=== PATIENT | female | born 1965 | race Caucasian/White ===

== ENCOUNTER 2024-05-29 07:50 | Emergency (ER) | payer OTHER, SELFPAY ==
--- NOTE | ~2024-05-29 | XR_ITS ---
EXAMINATION: XR chest 2V 05/29/2024 08:51 INDICATION: Left-sided chest pain with cough PROCEDURE: 2 view chest COMPARISON: 07/27/2021 FINDINGS: The lungs are clear. The lungs are hyperinflated which is consistent with, but not diagnost ic of chronic obstructive pulmonary disease. The cardiomediastinal silhouette is within normal limits . There are no pleural effusions. There is no pneumothorax suspected. IMPRESSION: 1: NO ACUTE CARDIOPULMONARY DISEASE. Reviewed, dictated and finalized at location B.
--- NOTE | 2024-05-29 07:51 | ECG_ITS ---
Test Date: 2024-05-29 07:55:00 Measurements Intervals [place] Rate: 71 P: 74 NC: 129 QRS: 88 QRSD: 84 T: 81 QT: 389 QTc: 424 Interpretive Statements SINUS RHYTHM No previous ECG available for comparison Electronically Signed On 05-29-2024 16:54:45 CDT by Agustina Crespo M.D.
--- OUTSIDE RECORDS SUMMARY | 2024-05-29 07:56 | XMS_ITS | Encounter Summary ---
Author Organization [facility] Address [address] [place] [address] Phone Care Team Providers Care Behavioral Health Care Coordinator Name Role Phone Curtis Dukes MD Unavailable Shirin Magallon MD Primary Care Provider Reason for Visit * Reason Comments Medication Refill Encounter Details Date Type Department Care Team (Late st Contact Info) Description 03/15/2020 Refill [facility] PULMONOLOGY #1 [place] [phone] Curtis Dukes MD #2 [place] [address] Medication Refill Social History Tobacco Use Types Packs/Day Years Used Date Smoking Tobacco: Former Cigarettes Smokeless Tobacco: Never Comments:patient quit June 2018 Alcohol Use Standard Drinks/Week Comments No 0 (1 standard drink = 0.6 oz pur e alcohol) Sexually Active Control Partners Comments Yes Male Comments No Sex and Gender Information Value Date Recorded Sex Assigned at Not on file Legal Sex Female 7:22 PM CDT Gender Identity Not on file Sexual Orientation Not on file documented as of this encounter Miscellaneous Notes * Telephone Encounter - Anabella Mercedes APN, CNP - 03/17/2020 7:45 AM CO FOUNDER AND CHAIRMAN Patient is no longer seen in this clinic. FOUNDER AND CHAIRMAN documented in this encounter Plan of Treatment Not on file documented as of this encounter Visit Diagnoses Not on filedocumented in this encounter Care Teams Behavioral Health Care Coordinator Relationship Specialty Start Date End Date Shirin Magallon MD [address] [address] PCP - General Obstetrics & Gynecology 07/28/17 Curtis Dukes MD Consulting Physician Pulmonary Disease 10/31/15 2 documented as of this encounter
--- OUTSIDE RECORDS SUMMARY | 2024-05-29 07:56 | XMS_ITS | CONTINUITY OF CARE DOCUMENT ---
Author Name kaila bright Address Unknown Organization [facility] Address [address] [place] [address] Phone [phone] Care Team Providers Care Health Navigator Name Role Phone Kye Pedraza MD Unavailable [phone] Kye Pedraza MD Unavailable [phone] INSURANCE PROVIDERS Payer name Policy type / Coverage type Jasmeet red republican [id number] MEDICAID (2) Medicaid [id number]
--- OUTSIDE RECORDS SUMMARY | 2024-05-29 07:56 | XMS_ITS | Encounter Summary ---
Author Organization [facility] Address [address] [place] [address] Phone Care Team Providers Care Survey Statistician Name Role Phone Curtis Dukes MD Unavailable Shirin Magallon MD Primary Care Provider Reason for Visit * Reason Comments Medication Refill Encounter Details Date Type Department Care Team (Late st Contact Info) Description 02/29/[address] [facility] PULMONOLOGY #1 [facility] [place] [phone] Curtis Dukes MD #2 [place] [phone] Medication Refill Social History Tobacco Use Types [...] on file documented as of this encounter Plan of Treatment Not on file documented as of this encounter Visit Diagnoses Not on filedocumented in this encounter Care Teams Survey Statistician Relationship Specialty Start Date End Date Shirin Magallon MD [address] [address] PCP - General Obstetrics & Gynecology 07/28/17 Curtis Dukes MD Consulting Physician Pulmonary Disease 10/31/15 2 documented as of this encounter
--- OUTSIDE RECORDS SUMMARY | 2024-05-29 07:56 | XMS_ITS | Encounter Summary ---
Author Organization [facility] Address [address] [facility] [place] [address] Phone Care Team Providers Care Residential Aide Name Role Phone Curtis Dukes MD Unavailable Shirin Magallon MD Primary Care Provider Reason for Visit * Reason Comments Medication Refill Encounter Details Date Type Department Care Team (Late st Contact Info) Description 07/09/2019 Refill [facility] PULMONOLOGY #1 [facility] [address] Curtis Dukes MD #2 [place] [phone] Medication Refill Social History Tobacco Use Types [...] on filedocumented in this encounter Care Teams Residential Aide Relationship Specialty Start Date End Date Shirin Magallon MD [address] [address] PCP - General Obstetrics & Gynecology 07/28/17 Curtis Dukes MD Consulting Physician Pulmonary Disease 10/31/15 2 documented as of this encounter
--- OUTSIDE RECORDS SUMMARY | 2024-05-29 07:56 | XMS_ITS | Clinical Summary ---
Author Organization [facility] Address [address] [facility] [place] [address] Phone Care Team Providers Care Butt Sawyer Name Role Phone Shirin Magallon MD Primary Care Provider Allergies Active Allergy Reactions Criticality Noted Date Comments Fentanyl Hives 11/03/2015 Cyclobenzaprine Hcl Other (see Comments) 2015 Leg spams Metronidazole Nausea 11/03/2015 Ropinirole Hcl Other (see Comments) 11/03/2015 Leg spams Quetiapine Other (see Comments) 11/03/2015 LEG SPAMS Trazodone Other (see Comments) 11/03/2015 LEG SPASM Medications Probiotic Product (SOLUBLE FIBER/PROBIOTIC S PO) Take by mouth. Activ e Cholecalciferol (VITAMIN D3) 2000 UNIT Capsule Take by mouth. Activ e IRON PO Take 130 mg by mouth Every other day. Active umeclidinium (INCRUSE ELLIPTA) 62.5 MCG/INH AEROSOL POWDER, BREATH ACTIVATED take 1 Puff by inhalation daily. 1 Each 3 9 Active temazepam (RESTORIL) 15 MG Capsule TAKE 1 CAPSULE BY MOUTH EVERY DAY AT BEDTIME NEEDED FOR SLEEP 8 Cap 9 Active albuterol (VENTOLIN HFA) 108 (90 Base) MCG/ACT Aerosol Solution take 2 Puffs by inhalation every 4 hours as needed for Wheezing. 1 Inhaler 5 9 Active clonazePAM (KLONOPIN) 0.5 MG Tablet TAKE 1 TABLET BY MOUTH THREE TIMES DAILY 270 Tab 2 0 Active clonazePAM (KLONOPIN) 1 MG Tablet TAKE 1 TABLET BY MOUTH THREE TIMES DAILY 270 Tab 5 0 Active ALBUTEROL 108 (90 Base) MCG/ACT Aerosol Solution INHALE 2 PUFFS BY MOUTH EVERY 4 HOURS NEEDED FOR SHORTNESS OF BREATH 8.5 g 0 Active temazepam (RESTORIL) 15 MG Capsule TAKE 1 CAPSULE BY MOUTH EVERY NIGHT AT BEDTIME NEEDED FOR SLEEP 8 Cap 4 0 Active Active Problems Problem Noted Date Diagnosed Date Restless legs 11/04/2015 Tobacco use disorder 11/04/2015 Centrilobular emphysema 11/04/2015 Cough 11/04/2015 SOB (shortness of breath) 11/04/2015 Family History Medical History Relation Name Comments Cancer Father No Known Problems Maternal Grandfather No Known Problems Maternal Grandmother Cancer Mother No Known Problems Paternal Grandfather No Known Problems Paternal Grandmother No Known Problems Sister Relation Name Status Comments Father Maternal Grandfather Maternal Grandmother Mother Alive Paternal Grandfather Paternal Grandmother Sister Alive Social History Tobacco Use Types Packs/Day Years Used Date Smoking Tobacco: Former Cigarettes Smokeless Tobacco: Never Tobacco Cessation:Ready to Q uit: Yes; Counseling Given: No Comments:patient quit June 2018 Alcohol Use Standard Drinks/Week Comments No 0 (1 standard drink = 0.6 oz pur e alcohol) Sexually Active Control Partners Comments Yes Male Comments No Sex and Gender Information Value Date Recorded Sex Assigned at Not on file Legal Sex Female 7:22 PM CDT Gender Identity Not on file Sexual Orientation Not on file Last Filed Vital Signs Vital Sign Reading Time Taken Comments Blood Pressure 128/62 12/21/2018 2:04 PM CDT Pulse 68 12/21/2018 2:04 PM CDT Temperature 36.1 C (96.9 F) 12/21/2018 2:04 PM CDT Respiratory Rate 18 12/21/2018 2:04 PM CDT Oxygen Saturation 96% 12/21/2018 2:04 PM CDT Inhaled Oxygen Concentration - - Weight 68.5 kg (151 lb) 12/21/2018 2:04 PM CDT Height 160 cm (5' 3 ) 12/21/2018 2:04 PM CDT Body Mass Index 26.75 12/21/2018 2:04 PM CDT Plan of Treatment Health Maintenance Due Date Last Done Comments Hepatitis C Virus (HCV) Screening 1965 TdaP Immunization 1965 Pneumococcal Immunization Co mbined (1 of 2 - PCV) 01/24/1970 Pneumococcal Immunization (5 0+ years) (1 of 2 - PCV) 01/24/1983 Pap Smear 01/24/1985 Cervical Cancer Screening (CCS) 01/24/1994 HPV/Cotest 01/24/1994 Cologuard 01/24/2014 Immunochemical Fecal Occult Blood 01/24/2014 Mammogram 01/24/2014 Zoster Immunization (1 of 2) 01/24/2014 Influenza Immunization (#1) 2023 SARS-COV-2 Immunization ( season) 2023 Colonoscopy 01/02/2024 01/01/2014 Colorectal Cancer Screening 01/02/2024 Respiratory Syncytial Virus (RSV) Immunization (Adult) (1 - Risk 60-74 years 1-dose series) 2024 01/01/2014 Hepatitis B Immunization Aged Out No longer eligible based on patient's age to complete this topic Meningococcal Immunization (ACWY) Aged Out No longer eligible based on patient's age to complete this topic Rotavirus Immunization Aged Out No lo nger eligible based on patient's age to complete this topic Procedures Procedure Name Priority Date/Time Associated Diagnosis Comments COLONOSCOPY Routine 01/01/2014 from Last 3 Months or Most Recently Relevant to Health Maintenance Results * COLONOSCOPY (01/01/2014) Shirin Magallon MD PROCEDURE/MINOR SURGIC AL ORDERABLES Final Result from Last 3 Months or Most Recently Relevant to Health Maintenance Insurance MEDICAID [employer] Care Teams Butt Sawyer Relationship Specialty Start Date End Date Shirin Magallon MD [address] [address] PCP - General Obstetrics & Gynecology 07/28/17
--- OUTSIDE RECORDS SUMMARY | 2024-05-29 07:56 | XMS_ITS | Encounter Summary ---
Author Organization [facility] Address [address] [facility] [place] [address] Phone Care Team Providers Care User Support Specialist Name Role Phone Curtis Dukes MD Unavailable Shirin Magallon MD Primary Care Provider Reason for Visit * Reason Comments Medication Refill Encounter Details Date Type Department Care Team (Late st Contact Info) Description 08/07/2019 Refill [facility] #1 [facility] [place] [phone] Curtis Dukes MD #2 [place] [phone] Medication Refill Social History Tobacco Use Types [...] on filedocumented in this encounter Care Teams User Support Specialist Relationship Specialty Start Date End Date Shirin Magallon MD [address] [address] PCP - General Obstetrics & Gynecology 07/28/17 Curtis Dukes MD Consulting Physician Pulmonary Disease 10/31/15 2 documented as of this encounter
--- OUTSIDE RECORDS SUMMARY | 2024-05-29 07:56 | XMS_ITS | Encounter Summary ---
Author Organization [facility] Address [address] [place] [address] Phone Care Team Providers Care Investigative Assistant Name Role Phone Curtis Dukes MD Unavailable Shirin Magallon MD Primary Care Provider Reason for Visit * Reason Comments Medication Refill Encounter Details Date Type Department Care Team (Late st Contact Info) Description 01/31/2020 Refill [facility]ULMONOLOGY #1 [facility] [place] [phone] Curtis Dukes MD #2 [place] [phone] Medication Refill Social History Tobacco Use Types [...] on filedocumented in this encounter Care Teams Investigative Assistant Relationship Specialty Start Date End Date Shirin Magallon MD [address] [address] PCP - General Obstetrics & Gynecology 07/28/17 Curtis Dukes MD Consulting Physician Pulmonary Disease 10/31/15 2 documented as of this encounter
--- OUTSIDE RECORDS SUMMARY | 2024-05-29 07:56 | XMS_ITS | Encounter Summary ---
Author Organization [facility] Address [address] [facility] [place] [address] Phone Care Team Providers Care Nursery Nurse Name Role Phone Curtis Dukes MD Unavailable Shirin Magallon MD Primary Care Provider Reason for Visit * Reason Comments Medication Refill Encounter Details Date Type Department Care Team (Late st Contact Info) Description 07/08/2019 Refill [facility] PULMONOLOGY #1 [place] [address] Curtis Dukes MD #2 [place] [phone] Medication Refill Social History Tobacco Use Types [...] on filedocumented in this encounter Care Teams Nursery Nurse Relationship Specialty Start Date End Date Shirin Magallon MD [address] [address] PCP - General Obstetrics & Gynecology 07/28/17 Curtis Dukes MD Consulting Physician Pulmonary Disease 10/31/15 2 documented as of this encounter
[2024-05-29 08:01] VITALS: BP 112/62; PULSE 69; RESP 20; TEMP 36.6; O2SAT 99
[2024-05-29 08:27] LABS: Basophils Absolute Auto 0.1 K/mm3 (0.0-0.1); Basophils Percent Auto 0.7 % (0.2-1.2); Eosinophils Absolute Auto 0.2 K/mm3 (0-0.3); Eosinophils Percent Auto 2.1 % (0-4.4); Hematocrit 43.8 % (37.0-47.0); Hemoglobin 14.3 g/dL (12.0-15.0); Immature Granulocyte Absolute 0.04 K/mm3 (0.00-0.031); Immature Granulocyte Percent A 0.5 % (0-0.5); Lymphocytes Absolute Auto 2.41 K/mm3 (0.9-3.2); Lymphocytes Percent Auto 28.2 % (18.3-44.2); Mean Corpuscular HGB Conc 32.6 g/dl (32-36); Mean Corpuscular Hemoglobin 29.8 pg (26-34); Mean Corpuscular Volume 91.3 fl (80-100); Mean Platelet Volume 9.2 fl (7.4-10.4); Monocytes Absolute Auto 0.5 K/mm3 (0.1-0.6); Neutrophils Absolute Auto 5.4 K/mm3 (1.3-6.7); Neutrophils Percent Auto 62.5 % (45.5-73.1); Platelet Count Result 248 k/mm3 (150-375); Red Cell Distribution Width 13.6 % (11.5-14.5); White Blood Count 8.6 K/mm3 (4.5-10.0)
[2024-05-29 08:39] LABS: INR 0.9; Prothrombin Time 12.9 Seconds (11.1-14.7)
[2024-05-29 08:40] LABS: Partial Thromboplastin Time 27.1 Seconds (22.3-36.8)
[2024-05-29 08:45] LABS: Alanine Aminotransferase 13 U/L (6-35); Alkaline Phosphatase 71 U/L (38-126); Anion Gap 6 mmol/L (4-12); Aspartate Amino Transferase 19 U/L (14-36); Bilirubin,Total 0.2 mg/dL (0.2-1.3); Blood Urea Nitrogen 18 mg/dL (7-17); Calcium 9.3 mg/dL (8.4-10.2); Carbon Dioxide 29 mmol/L (22-30); Chloride 105 mmol/L (98-107); Estimated CRCL calculation 53 ml/min; Estimated Glomerular Filt Rate > 60; Glucose 101 mg/dL (65-110); Lipase 76 U/L (23-300); Potassium 4.6 mmol/L (3.4-5.0); Sodium 140 mmol/L (137-145)
[2024-05-29 08:54] LABS: Troponin I < 0.012 ng/mL (0.000-0.034)
[2024-05-29 09:10] LABS: Influenza A QL RT-PCR Negative (Negative); Influenza B QL RT-PCR Negative (Negative); RSV RNA, RT-PCR Negative (Negative); SARS-CoV-2 RNA PCR Negative (Negative)
[2024-05-29 09:22] VITALS: BP 108/72; PULSE 76; RESP 20; O2SAT 97
--- NOTE | 2024-05-29 09:46 | ED.CHESTPAIN ---
HPI - Chest Pain General Chief Complaint: Chest Pain Stated Complaint: Cp, vomiting Time Seen by Provider: 05/29/24 09:01 Source: patient Mode of arrival: ambulatory Limitations: no limitations History of Present Illness HPI narrative: This is a 59-year-old female with PMH of emphysema who presents to the ED for chief complaint of chest pain and vomiting that occurred last night around 2200. Patient states that she had a couple episodes of vomiting with last emesis at 1:00 a.m.. Patient states this all started with epigastric abdominal pain that radiated into the chest. Describes the pain as a burning pain. States that she did not have much to eat but did have a couple of ?dong dongs prior to this episode. Patient was fearful that this episode today could have represented a heart attack so she came ER. States that she is currently asymptomatic and that the pain yesterday only lasted for several minutes. No association with diaphoresis or syncope. Denies fevers, chills, diarrhea, shortness of breath, cough, numbness, weakness. Denies heart history or history of cardiac stents. Related Data Allergies Allergy/AdvReac Type Severity Reaction Status Date / Time quetiapine Allergy Mild Unknown Verified 05/29/24 09:27 trazodone Allergy Mild Unknown Verified 05/29/24 09:27 metronidazole AdvReac Unknown Vomiting Verified 05/29/24 09:27 Review of Systems Review of Systems: All systems as dictated in HPI Exam Narrative: GENERAL: Well-appearing, well-nourished, and in no acute distress. HEAD: Normocephalic, atraumatic. EYES: PERRLA and EOMI. ENT: Nares clear, no rhinorrhea or epistaxis. Mucous membranes moist. Oropharynx without tonsillar hypertrophy exudate or other lesions. NECK: Supple. No adenopathy or masses. CHEST: No respiratory distress. Clear to auscultation. No wheezes rales or rhonchi HEART: Regular rate and rhythm. No murmur heard. Normal peripheral pulses. ABDOMEN: Soft, nontender, nondistended, normal active bowel sounds. MSK: Normal range of motion. No edema. SKIN: Warm, dry, no rash. NEURO: Alert and oriented x4. No focal deficits. PSYCH: Normal mood and affect. Course Vital Signs Vital signs: Vital Signs Temperature 97.9 F 05/29/24 08:01 Pulse Rate 69 03/18/25 08:01 Respiratory Rate 20 05/29/24 08:01 Blood Pressure 112/62 05/29/24 08:01 Pulse Oximetry 99 05/29/24 08:01 Oxygen Delivery Room Air 05/29/24 08:01 Temperature 97.7 F 05/29/24 11:32 Pulse Rate 82 05/29/24 11:32 Respiratory Rate 20 05/29/24 11:32 Blood Pressure 110/70 05/29/24 11:32 Pulse Oximetry 97 05/29/24 11:32 Oxygen Delivery Room Air 05/29/24 09:22 MDM - Chest Pain MDM Narrative Medical decision making narrative: This is a 5-year-old female who presents to the ED for chief complaint of chest pain and vomiting onset last night. Vitals are normal. Exam is unremarkable. She is pain-free on arrival to the ED. EKG shows sinus rhythm with no acute ischemia Chest x-ray is negative for acute findings. Lab work is unremarkable overall. 0 and 3 hour troponins are negative. Low concern for PE as a cause of presentation today. Wells score is low. Heart score is 2. Patient is pain-free on my initial arrival and pain-free on re-evaluation. She feels comfortable with discharge with her PCP on this issue. Will start on omeprazole for likely GERD like symptoms. Patient will be discharged in stable condition. Supportive measures discussed and return precautions given. Patient is understanding and agreeable with plan for discharge with PCP follow-up. Lab Data 05/29/24 08:08 05/29/24 08:08 Labs: Lab Results 05/29/24 05/29/24 05/29/24 Range/Units 08:08 08:09 10:43 WBC 8.6 (4.5-10.0) K/mm3 RBC 4.80 (4.2-5.4) M/mm3 Hgb 14.3 (12.0-15.0) g/dL Hct 43.8 (37.0-47.0) % MCV 91.3 (80-100) fl MCH 29.8 (26-34) pg MCHC 32.6 (32-36) g/dl RDW 13.6 (11.5-14.5) % Plt Count 248 (150-375) k/mm3 MPV 9.2 (7.4-10.4) fl Immature Gran % (Auto) 0.5 (0-0.5) % Neut % (Auto) 62.5 (45.5-73.1) % Lymph % (Auto) 28.2 (18.3-44.2) % Hettinger % (Auto) 6.0 (2.6-8.5) % Eos % (Auto) 2.1 (0-4.4) % Baso % (Auto) 0.7 (0.2-1.2) % Lymph # (Auto) 2.41 (0.9-3.2) K/mm3 Het[place]er # (Auto) 0.5 (0.1-0.6) K/mm3 Eos # (Auto) 0.2 (0-0.3) K/mm3 Baso # (Auto) 0.1 (0.0-0.1) K/mm3 Abs Immat Gran (auto) 0.04 H (0.00-0.031) K/mm3 Absolute Neuts (auto) 5.4 (1.3-6.7) K/mm3 Absolute Nucleated RBC 0.000 (0.0-0.012) K/mm3 Nucleated RBC % 0.0 (0.0-0.2) % PT 12.9 (11.1-14.7) Seconds INR 0.9 APTT 27.1 (22.3-36.8) Seconds Sodium 140 (137-145) mmol/L Potassium 4.6 (3.4-5.0) mmol/L Chloride 105 (98-107) mmol/L Carbon Dioxide 29 (22-30) mmol/L Anion Gap 6 (4-12) mmol/L BUN 18 H (7-17) mg/dL Creatinine 0.78 (0.7-1.0) mg/dL Estim Creat Clear Calc 53 ml/min Estimated GFR > 60 (59 - ) Glucose 101 (65-110) mg/dL Calcium 9.3 (8.4-10.2) mg/dL Total Bilirubin 0.2 (0.2-1.3) mg/dL AST 19 (14-36) U/L ALT 13 (6-35) U/L Alkaline Phosphatase 71 (38-126) U/L Troponin I < 0.012 < 0.012 (0.000-0.034) ng/mL Total Protein 7.0 (6.3-8.2) g/dL Albumin 4.0 (3.5-5.1) g/dL Lipase 76 (23-300) U/L Influenza A (RT-PCR) Negative (Negative) Influenza B (RT-PCR) Negative (Negative) RSV (RT-PCR) Negative (Negative) SARS-CoV-2 RNA (RT-PCR) Negative (Negative) ECG Data EKG #1: ECG completion date: 05/29/24 ECG completion time: 07:55 Prior ECG tracings: available for review Interpretation: Sinus rhythm Rate 71 Or QRS Normal QTC No acute ischemic findings Discharge Plan Discharge Clinical Impression: Chest pain, Abdominal pain Patient Disposition: Home, Self-Care Condition: Stable Instructions: Antibiotic Form, Chest Pain (ED) Additional Instructions: Your exam and imaging today are reassuring. Please follow-up closely with your PCP on this issue within the next week. Please start taking omeprazole for reduction and stomach acid. If you have any new or worsening symptoms please return to the ER for further evaluation. Patient Language: Frisian Prescriptions: New omeprazole 20 mg capsule,delayed release(DR/EC) 20 mg PO DAILY Qty: 30 0RF Follow-up/Referrals: UNKNOWN,DOCTOR [Primary Care Provider] - Time of Disposition: 11:18 Quality HEART score for chest pain patients History: slightly suspicious ECG: normal Age: > 45 and < 65 years Risk factors: 1 or 2 risk factors Troponin: < or = to 1x normal limit Heart score: 2
--- OUTSIDE RECORDS SUMMARY | 2024-05-29 09:48 | XMS_ITS | Encounter Summary ---
Author Organization [facility] Address [address] [place] [address] Phone Care Team Providers Care Drafting Engineer Name Role Phone Curtis Dukes MD Unavailable Shirin Magallon MD Primary Care Provider Reason for Visit * Reason Comments Medication Refill Encounter Details Date Type Department Care Team (Late st Contact Info) Description 03/15/2020 Refill [facility] PULMONOLOGY #1 [place] [phone] Curtis Dukes MD #2 [place] [address] Medication Refill Social History Tobacco [...] Mercedes APN, CNP - 03/17/2020 7:45 AM PLASTIC ROLLER Patient is no longer seen in this clinic. TIC ROLLER documented in this encounter Plan of Treatment Not on file documented as of this encounter Visit Diagnoses Not on filedocumented in this encounter Care Teams Drafting Engineer Relationship Specialty Start Date End Date Shirin Magallon MD [address] [address] PCP - General Obstetrics & Gynecology 07/28/17 Curtis Dukes MD Consulting Physician Pulmonary Disease 10/31/15 2 documented as of this encounter
--- OUTSIDE RECORDS SUMMARY | 2024-05-29 09:48 | XMS_ITS | Encounter Summary ---
Author Organization [facility] Address [address] [facility] [place] [address] Phone Care Team Providers Care Marketing Support Manager Name Role Phone Curtis Dukes MD Unavailable Shirin Magallon MD Primary Care Provider Reason for Visit * Reason Comments Medication Refill Encounter Details Date Type Department Care Team (Late st Contact Info) Description 07/09/2019 Refill [facility]ULMONOLOGY #1 [facility] [place] [address] Curtis Dukes MD #2 [place] [phone] Medication Refill Social History Tobacco Use Types [...] on filedocumented in this encounter Care Teams Marketing Support Manager Relationship Specialty Start Date End Date Shirin Magallon MD [address] [address] PCP - General Obstetrics & Gynecology 07/28/17 Curtis Dukes MD Consulting Physician Pulmonary Disease 10/31/15 2 documented as of this encounter
--- OUTSIDE RECORDS SUMMARY | 2024-05-29 09:48 | XMS_ITS | Encounter Summary ---
Author Organization [facility] Address [address] [place] [address] Phone Care Team Providers Care Template Clerk Name Role Phone Curtis Dukes MD Unavailable Shirin Magallon MD Primary Care Provider Reason for Visit * Reason Comments Medication Refill Encounter Details Date Type Department Care Team (Late st Contact Info) Description 01/31/2020 Refill [facility] PULMONOLOGY #1 [facility] [place] [phone] Curtis Dukes MD #2 [place] [phone] Medication Refill Social History Tobacco Use Types [...] on filedocumented in this encounter Care Teams Template Clerk Relationship Specialty Start Date End Date Shirin Magallon MD [address] [address] PCP - General Obstetrics & Gynecology 07/28/17 Curtis Dukes MD Consulting Physician Pulmonary Disease 10/31/15 2 documented as of this encounter
--- OUTSIDE RECORDS SUMMARY | 2024-05-29 09:48 | XMS_ITS | Encounter Summary ---
Author Organization [facility] Address [address] [place] [address] Phone Care Team Providers Care Family Worker Name Role Phone Curtis Dukes MD Unavailable Shirin Magallon MD Primary Care Provider Reason for Visit * Reason Comments Medication Refill Encounter Details Date Type Department Care Team (Late st Contact Info) Description 07/08/2019 Refill [facility] PULMONOLOGY #1 [facility] [place] [address] Curtis Dukes MD #2 [place] [phone] Medication Refill Social History Tobacco Use Types [...] on filedocumented in this encounter Care Teams Family Worker Relationship Specialty Start Date End Date Shirin Magallon MD [address] [address] PCP - General Obstetrics & Gynecology 07/28/17 Curtis Dukes MD Consulting Physician Pulmonary Disease 10/31/15 2 documented as of this encounter
--- OUTSIDE RECORDS SUMMARY | 2024-05-29 09:48 | XMS_ITS | Encounter Summary ---
Author Organization [facility] Address [address] [place] [address] Phone Care Team Providers Care Property Utilization Officer Name Role Phone Curtis Dukes MD Unavailable Shirin Magallon MD Primary Care Provider Reason for Visit * Reason Comments Medication Refill Encounter Details Date Type Department Care Team (Late st Contact Info) Description 08/07/[address] [facility] [address] [facility] [place] [id number] Curtis Dukes MD [address] [place] [phone] Medication Refill Social History Tobacco Use Types [...] on filedocumented in this encounter Care Teams Property Utilization Officer Relationship Specialty Start Date End Date Shirin Magallon MD [address] [address] PCP - General Obstetrics & Gynecology 07/28/17 Curtis Dukes MD Consulting Physician Pulmonary Disease 10/31/15 2 documented as of this encounter
--- OUTSIDE RECORDS SUMMARY | 2024-05-29 09:48 | XMS_ITS | Clinical Summary ---
Author Organization [facility] Address [address] [facility] [place] [address] Phone Care Team Providers Care Instrument Processing Tech Name Role Phone Shirin Magallon MD Primary [...] Insurance MEDICAID [employer] Care Teams Instrument Processing Tech Relationship Specialty Start Date End Date Shirin Magallon MD [address] [address] PCP - General Obstetrics & Gynecology 07/28/17
--- OUTSIDE RECORDS SUMMARY | 2024-05-29 09:48 | XMS_ITS | CONTINUITY OF CARE DOCUMENT ---
Author Name kaila bright Address Unknown Organization [facility] Address [address] [place] [address] Phone [phone] Care Team Providers Care Speed Belt Sander Tender Name Role Phone Kye Pedraza MD Unavailable [phone] Kye Pedraza MD Unavailable [phone] INSURANCE PROVIDERS Payer name Policy type / Coverage type Jasmeet red republican [id number] (2) Medicaid [id number]
--- OUTSIDE RECORDS SUMMARY | 2024-05-29 09:48 | XMS_ITS | Encounter Summary ---
Author Organization [facility] Address [address] [place] [address] Phone Care Team Providers Care Commercial Credit Lead Name Role Phone Curtis Dukes MD Unavailable Shirin Magallon MD Primary Care Provider Reason for Visit * Reason Comments Medication Refill Encounter Details Date Type Department Care Team (Late st Contact Info) Description 02/29/2020 Refill [facility] [address] [facility] [place] [phone] Curtis Dukes MD [address] [place] [phone] Medication Refill Social History Tobacco Use Types [...] on filedocumented in this encounter Care Teams Commercial Credit Lead Relationship Specialty Start Date End Date Shirin Magallon MD [address] [address] PCP - General Obstetrics & Gynecology 07/28/17 Curtis Dukes MD Consulting Physician Pulmonary Disease 10/31/15 2 documented as of this encounter
[2024-05-29] MEDS: FAMOTIDINE 20 MG TABLET PO (10:01)
[2024-05-29 10:02] VITALS: BP 107/82; PULSE 82; RESP 19; O2SAT 98
--- NOTE | 2024-05-29 10:57 | ECG_ITS ---
Test Date: 2024-05-29 10:58:16 Measurements Intervals [place] Rate: 65 P: 69 NH: 134 QRS: 82 QRSD: 86 T: 90 QT: 415 QTc: 432 Interpretive Statements SINUS RHYTHM NORMAL ECG Electronically Signed On 05-30-2024 12:05:13 CDT by Marco Stockton M.D.
[2024-05-29 11:16] LABS: Troponin I < 0.012 ng/mL (0.000-0.034)
[2024-05-29 11:32] VITALS: BP 110/70; PULSE 82; RESP 20; TEMP 36.5; O2SAT 97
== END 2024-05-29 11:34 | disposition home or self-care (01) ==
PROVIDERS: Student in an Organized Health Care Education/Training Program; Emergency Provider Physician Assistant
DX: R07.9 Chest pain, unspecified (principal); R10.9 Unspecified abdominal pain; Z20.822 Contact with and (suspected) exposure to COVID-19; J43.9 Emphysema, unspecified
CPT/HCPCS: 36415; 71046; 80053; 83690; 84484; 85025; 85610; 85730; 87637; 93005; 99284; A9270